=== PATIENT | female | born 1945 | race Caucasian/White ===

== ENCOUNTER → 2023-05-28 13:00 | Outpatient (REF) | payer MEDICARE, SELFPAY ==
[2023-05-28 13:38] LABS: % Basophils 1.3 % (0-2); % Eosinophils 3.3 % (0-6); % Immature Granulocytes 0.3 % (0-0.5); % Lymphocytes 33.9 % (20.5-51.1); % Monocytes 10.2 % (1.7-9.3); Absolute Basophils 0.1 10^3/uL (0-0.2); Absolute Eosinophils 0.2 10^3/uL (0-0.7); Absolute Monocytes 0.6 10^3/uL (0.1-0.6); Absolute Neutrophils 3.1 10^3/uL (1.4-6.5); Hematocrit 36.6 % (37.0-47.0); Hemoglobin 12.1 g/dL (12.0-16.0); Mean Corp Hgb Conc. 33.1 g/dL (33.0-37.0); Mean Corpuscular Hgb 28.7 pg (27.0-31.0); Mean Corpuscular Volume 86.7 fL (81.0-99.0); Mean Platelet Volume 11.6 fL (7.4-10.4); Nucleated Red Blood Cells % 0 %; Platelet Count 229 10^3/uL (130-400); Red Blood Cell Count 4.22 10^6/uL (4.20-5.40); Red Cell Dist. Width 14.6 % (11.5-14.5)
[2023-05-28 13:49] LABS: ALT (SGPT) 13 U/L (0-35); AST (SGOT) 23 U/L (14-36); Albumin 3.7 g/dl (3.5-5.0); Alkaline Phosphatase 89 U/L (38-126); Blood Urea Nitrogen 26 mg/dl (7-17); Calcium 9.3 mg/dl (8.4-10.2); Carbon Dioxide 29 mmol/L (22-30); Chloride 97 mmol/L (98-107); Glucose 167 mg/dl (70-99); HDL Cholesterol 42 mg/dl; LDL Cholesterol, Calculated 41 mg/dl; Potassium 5.3 mmol/L (3.5-5.1); Sodium 135 mmol/L (135-145); Total Bilirubin 0.5 mg/dl (0.2-1.3); Total Cholesterol 143 mg/dl (50-199); Total Protein 6.4 g/dl (6.3-8.2); Triglyceride 302 mg/dl (10-149); Very Low Density Lipoprotein 60 mg/dl (0-30); eGFR > 60.00
[2023-05-28 14:19] LABS: Glycohemoglobin (HgbA1c) 8.1 % (4.0-5.6); TSH 2.85 uIU/ml (0.47-4.68)
== END ==
LOC: OLABPV 13:00
PROVIDERS: ATTENDING PHYSICIAN Physician Assistant; REFERRING PHYSICIAN Internal Medicine Cardiovascular Disease
DX: E04.1 Nontoxic single thyroid nodule (principal); I25.10 Atherosclerotic heart disease of native coronary artery without angina pectoris; R06.02 Shortness of breath; E11.9 Type 2 diabetes mellitus without complications; I42.9 Cardiomyopathy, unspecified; E66.9 Obesity, unspecified; Z95.5 Presence of coronary angioplasty implant and graft
CPT/HCPCS: 36415; 80053; 80061; 83036; 84443; 85025

== ENCOUNTER 2023-05-31 09:01 | Outpatient (RCR) | payer MEDICARE, SELFPAY ==
[2023-05-31] VITALS (7 sets, daily range): BP systolic 119–128; BP diastolic 56–63
[2023-05-31] MEDS: CLARITIN 10 MG PO (09:36)
[2023-05-31] MEDS: TYLENOL 650 MG PO (09:36)
[2023-05-31] MEDS: DECADRON 4 MG IV (09:37)
[2023-05-31] MEDS: GAMMAGARD 200 IV ×2 (09:45→11:02)
== END 2023-06-01 09:59 | disposition home or self-care (01) ==
LOC: OID 09:01
PROVIDERS: ATTENDING PHYSICIAN Internal Medicine Critical Care Medicine; FAMILY PHYSICIAN Internal Medicine
DX: J45.40 Moderate persistent asthma, uncomplicated (principal); D80.1 Nonfamilial hypogammaglobulinemia; J98.4 Other disorders of lung; R94.2 Abnormal results of pulmonary function studies; J18.9 Pneumonia, unspecified organism; J41.1 Mucopurulent chronic bronchitis; J47.9 Bronchiectasis, uncomplicated
CPT/HCPCS: 96365; 96366; 96375; J1569

== ENCOUNTER 2023-07-12 08:57 | Outpatient (RCR) | payer MEDICARE, SELFPAY ==
[2023-07-12] VITALS (7 sets, daily range): BP systolic 99–142; BP diastolic 50–67
[2023-07-12] MEDS: TYLENOL 650 MG PO (09:21)
[2023-07-12] MEDS: CLARITIN 10 MG PO (09:22)
[2023-07-12] MEDS: DECADRON 0.400000000000000022 MG IV (09:23)
[2023-07-12] MEDS: GAMMAGARD 200 IV ×2 (09:25→10:44)
[2023-07-12 10:49] LABS: Glucose - Point of Care 89 mg/dl (70-99)
== END 2023-08-03 23:59 | disposition home or self-care (01) ==
LOC: OID 08:57
PROVIDERS: ATTENDING PHYSICIAN Internal Medicine Critical Care Medicine; FAMILY PHYSICIAN Internal Medicine
DX: J45.40 Moderate persistent asthma, uncomplicated (principal); D80.1 Nonfamilial hypogammaglobulinemia; J98.4 Other disorders of lung; R94.2 Abnormal results of pulmonary function studies; J18.9 Pneumonia, unspecified organism; J41.1 Mucopurulent chronic bronchitis; J47.9 Bronchiectasis, uncomplicated
CPT/HCPCS: 82962; 96365; 96366; 96375; J1569

== ENCOUNTER 2023-08-23 10:28 | Outpatient (RCR) | payer MEDICARE, SELFPAY ==
[2023-08-23] MEDS: CLARITIN 10 MG PO (11:21)
[2023-08-23] MEDS: TYLENOL 650 MG PO (11:21)
[2023-08-23] MEDS: DECADRON 1 MG IV (11:21)
[2023-08-23 11:25] VITALS: BP 107/48
[2023-08-23] MEDS: GAMMAGARD 200 IV ×2 (11:25→12:44)
[2023-08-23 11:55] VITALS: BP 100/46
[2023-08-23 12:25] VITALS: BP 105/48
[2023-08-23 12:55] VITALS: BP 117/52
[2023-08-23 13:25] VITALS: BP 118/62
[2023-08-23 13:41] VITALS: BP 118/58
== END 2023-08-23 15:47 | disposition home or self-care (01) ==
LOC: OID 10:28
PROVIDERS: ATTENDING PHYSICIAN Internal Medicine Critical Care Medicine; FAMILY PHYSICIAN Internal Medicine
DX: J45.40 Moderate persistent asthma, uncomplicated (principal); D80.1 Nonfamilial hypogammaglobulinemia; J98.4 Other disorders of lung; R94.2 Abnormal results of pulmonary function studies; J18.9 Pneumonia, unspecified organism; J41.1 Mucopurulent chronic bronchitis; J47.9 Bronchiectasis, uncomplicated
CPT/HCPCS: 96365; 96366; 96375; J1569

== ENCOUNTER → 2023-08-27 10:01 | Outpatient (REF) | payer MEDICARE, SELFPAY ==
[2023-08-27 10:38] LABS: % Basophils 0.9 % (0-2); % Immature Granulocytes 0.3 % (0-0.5); % Lymphocytes 25.9 % (20.5-51.1); % Neutrophils 57.9 % (42.2-75.2); Absolute Basophils 0.1 10^3/uL (0-0.2); Absolute Eosinophils 0.4 10^3/uL (0-0.7); Absolute Monocytes 0.8 10^3/uL (0.1-0.6); Absolute Neutrophils 4.4 10^3/uL (1.4-6.5); Hematocrit 35.4 % (37.0-47.0); Mean Corp Hgb Conc. 33.9 g/dL (33.0-37.0); Mean Corpuscular Hgb 28.5 pg (27.0-31.0); Mean Corpuscular Volume 84.1 fL (81.0-99.0); Mean Platelet Volume 11.7 fL (7.4-10.4); Nucleated Red Blood Cells % 0 %; Platelet Count 189 10^3/uL (130-400); Red Blood Cell Count 4.21 10^6/uL (4.20-5.40); Red Cell Dist. Width 14.5 % (11.5-14.5); White Blood Cell Count 7.6 10^3/uL (4.8-10.8)
[2023-08-27 11:02] LABS: ALT (SGPT) 15 U/L (0-35); AST (SGOT) 29 U/L (14-36); Albumin 3.9 g/dl (3.5-5.0); Alkaline Phosphatase 97 U/L (38-126); Blood Urea Nitrogen 34 mg/dl (7-17); Calcium 9.3 mg/dl (8.4-10.2); Carbon Dioxide 23 mmol/L (22-30); Chloride 102 mmol/L (98-107); Glucose 127 mg/dl (70-99); Potassium 4.7 mmol/L (3.5-5.1); Sodium 137 mmol/L (135-145); Total Bilirubin 0.4 mg/dl (0.2-1.3); Total Protein 6.7 g/dl (6.3-8.2); eGFR > 60.00
[2023-08-27 11:32] LABS: TSH 2.74 uIU/ml (0.47-4.68)
== END ==
LOC: OLABPV 10:01
PROVIDERS: ATTENDING PHYSICIAN Chiropractor; FAMILY PHYSICIAN Physician Assistant
DX: E11.65 Type 2 diabetes mellitus with hyperglycemia (principal); E04.1 Nontoxic single thyroid nodule
CPT/HCPCS: 36415; 80053; 83036; 84443; 85025

== ENCOUNTER → 2023-12-04 10:35 | Outpatient (REF) | payer MEDICARE, SELFPAY | LOC: RAD 10:35 | PROVIDERS: ATTENDING PHYSICIAN Internal Medicine Infectious Disease; FAMILY PHYSICIAN Internal Medicine; REFERRING PHYSICIAN Internal Medicine Critical Care Medicine | DX: A31.8 Other mycobacterial infections (principal) | CPT/HCPCS: 71250 ==

== ENCOUNTER → 2023-12-24 08:50 | Outpatient (REF) | payer MEDICARE, SELFPAY ==
[2023-12-24 10:12] LABS: % Basophils 0.8 % (0-2); % Eosinophils 2.2 % (0-6); % Immature Granulocytes 0.3 % (0-0.5); % Lymphocytes 20.4 % (20.5-51.1); % Monocytes 9.4 % (1.7-9.3); % Neutrophils 66.9 % (42.2-75.2); Absolute Basophils 0.1 10^3/uL (0-0.2); Absolute Eosinophils 0.2 10^3/uL (0-0.7); Absolute Lymphocytes 1.8 10^3/uL (1.2-3.4); Absolute Monocytes 0.9 10^3/uL (0.1-0.6); Hematocrit 36.5 % (37.0-47.0); Hemoglobin 12.3 g/dL (12.0-16.0); Mean Corp Hgb Conc. 33.7 g/dL (33.0-37.0); Mean Corpuscular Hgb 28.4 pg (27.0-31.0); Mean Corpuscular Volume 84.3 fL (81.0-99.0); Mean Platelet Volume 11.3 fL (7.4-10.4); Nucleated Red Blood Cells % 0 %; Platelet Count 244 10^3/uL (130-400); Red Blood Cell Count 4.33 10^6/uL (4.20-5.40); Red Cell Dist. Width 14.1 % (11.5-14.5)
[2023-12-24 10:38] LABS: Glycohemoglobin (HgbA1c) 7.4 % (4.0-5.6)
[2023-12-24 10:44] LABS: ALT (SGPT) 17 U/L (0-35); AST (SGOT) 27 U/L (14-36); Albumin 4.1 g/dl (3.5-5.0); Alkaline Phosphatase 108 U/L (38-126); Blood Urea Nitrogen 31 mg/dl (7-17); Calcium 9.3 mg/dl (8.4-10.2); Carbon Dioxide 20 mmol/L (22-30); Chloride 103 mmol/L (98-107); Glucose 144 mg/dl (70-99); Potassium 4.8 mmol/L (3.5-5.1); Sodium 141 mmol/L (135-145); Total Bilirubin 0.4 mg/dl (0.2-1.3); Total Protein 6.4 g/dl (6.3-8.2); eGFR > 60.00
== END ==
LOC: OLABPV 08:50
PROVIDERS: ATTENDING PHYSICIAN Physician Assistant
DX: E11.65 Type 2 diabetes mellitus with hyperglycemia (principal); E04.1 Nontoxic single thyroid nodule
CPT/HCPCS: 36415; 80053; 83036; 84443; 85025

== ENCOUNTER 2023-12-30 08:56 | Outpatient (RCR) | payer MEDICARE, SELFPAY ==
[2023-12-30 09:10] VITALS: BP 123/35
[2023-12-30] MEDS: SOLU-MEDROL PF 0.8 MG IV (09:34)
[2023-12-30] MEDS: TYLENOL 650 MG PO (09:34)
[2023-12-30] MEDS: CLARITIN 10 MG PO (09:34)
[2023-12-30] MEDS: GAMMAGARD 200 IV ×2 (09:35→10:55)
[2023-12-30 09:48] VITALS: BP 115/42
[2023-12-30 09:49] VITALS: BMI 43.2
[2023-12-30 10:18] VITALS: BP 123/56
[2023-12-30 10:48] VITALS: BP 123/56
[2023-12-30 11:18] VITALS: BP 106/35
[2023-12-30 11:48] VITALS: BP 111/55
== END 2024-01-03 23:59 | disposition home or self-care (01) ==
LOC: OID 08:56
PROVIDERS: ATTENDING PHYSICIAN Internal Medicine Critical Care Medicine; FAMILY PHYSICIAN Internal Medicine
DX: D80.1 Nonfamilial hypogammaglobulinemia (principal); J45.40 Moderate persistent asthma, uncomplicated; J98.4 Other disorders of lung; R94.2 Abnormal results of pulmonary function studies; J41.1 Mucopurulent chronic bronchitis; J47.9 Bronchiectasis, uncomplicated; I42.9 Cardiomyopathy, unspecified; R06.02 Shortness of breath; J18.9 Pneumonia, unspecified organism; I25.10 Atherosclerotic heart disease of native coronary artery without angina pectoris; E66.01 Morbid (severe) obesity due to excess calories; Z68.42 Body mass index [BMI] 45.0-49.9, adult; Z86.16 Personal history of COVID-19; I10 Essential (primary) hypertension
CPT/HCPCS: 96365; 96366; 96375; J1569

== ENCOUNTER 2024-02-10 08:58 | Outpatient (RCR) | payer MEDICARE, SELFPAY ==
[2024-02-10] VITALS (7 sets, daily range): BP systolic 115–135; BP diastolic 48–84; BMI 43.2
[2024-02-10] MEDS: SOLU-MEDROL PF 0.8 MG IV (09:45)
[2024-02-10] MEDS: CLARITIN 10 MG PO (09:45)
[2024-02-10] MEDS: TYLENOL 650 MG PO (09:45)
[2024-02-10] MEDS: GAMMAGARD 200 IV ×2 (09:49→11:04)
== END 2024-02-11 10:26 | disposition home or self-care (01) ==
LOC: OID 08:58
PROVIDERS: ATTENDING PHYSICIAN Internal Medicine Critical Care Medicine; FAMILY PHYSICIAN Internal Medicine
DX: D80.1 Nonfamilial hypogammaglobulinemia (principal); J45.40 Moderate persistent asthma, uncomplicated; J98.4 Other disorders of lung; R94.2 Abnormal results of pulmonary function studies; J18.9 Pneumonia, unspecified organism; J41.1 Mucopurulent chronic bronchitis; J47.9 Bronchiectasis, uncomplicated
CPT/HCPCS: 96365; 96366; 96375; J1569

== ENCOUNTER 2024-03-23 08:56 | Outpatient (RCR) | payer MEDICARE, SELFPAY ==
[2024-03-23 09:30] VITALS: BP 123/51
[2024-03-23] MEDS: TYLENOL 650 MG PO (09:53)
[2024-03-23] MEDS: SOLU-MEDROL PF 0.8 MG IV (09:54)
[2024-03-23] MEDS: CLARITIN 10 MG PO (09:54)
[2024-03-23] MEDS: GAMMAGARD 200 IV ×2 (09:55→11:14)
[2024-03-23 10:03] VITALS: BP 121/52
[2024-03-23 10:33] VITALS: BP 118/52
[2024-03-23 11:03] VITALS: BP 119/60
[2024-03-23 11:33] VITALS: BP 125/60
[2024-03-23 12:03] VITALS: BP 126/52
== END 2024-03-24 11:36 | disposition home or self-care (01) ==
LOC: OID 08:56
PROVIDERS: ATTENDING PHYSICIAN Internal Medicine Critical Care Medicine; FAMILY PHYSICIAN Internal Medicine
DX: D80.1 Nonfamilial hypogammaglobulinemia (principal); J45.40 Moderate persistent asthma, uncomplicated; J98.4 Other disorders of lung; R94.2 Abnormal results of pulmonary function studies; J18.9 Pneumonia, unspecified organism; J41.1 Mucopurulent chronic bronchitis; J47.9 Bronchiectasis, uncomplicated
CPT/HCPCS: 96365; 96366; 96375; J1569

== ENCOUNTER → 2024-04-21 10:44 | Outpatient (REF) | payer MEDICARE, SELFPAY ==
[2024-04-21 11:57] LABS: % Basophils 1.2 % (0-2); % Eosinophils 2.5 % (0-6); % Immature Granulocytes 0.3 % (0-0.5); % Lymphocytes 38.2 % (20.5-51.1); % Monocytes 10.4 % (1.7-9.3); % Neutrophils 47.4 % (42.2-75.2); Absolute Basophils 0.1 10^3/uL (0-0.2); Absolute Eosinophils 0.2 10^3/uL (0-0.7); Absolute Lymphocytes 2.5 10^3/uL (1.2-3.4); Absolute Monocytes 0.7 10^3/uL (0.1-0.6); Absolute Neutrophils 3.1 10^3/uL (1.4-6.5); Hematocrit 39.9 % (37.0-47.0); Hemoglobin 12.6 g/dL (12.0-16.0); Mean Corp Hgb Conc. 31.6 g/dL (33.0-37.0); Mean Corpuscular Hgb 28.3 pg (27.0-31.0); Mean Corpuscular Volume 89.7 fL (81.0-99.0); Mean Platelet Volume 11.5 fL (7.4-10.4); Nucleated Red Blood Cells % 0 %; Platelet Count 223 10^3/uL (130-400); Red Blood Cell Count 4.45 10^6/uL (4.20-5.40); Red Cell Dist. Width 14.5 % (11.5-14.5); White Blood Cell Count 6.5 10^3/uL (4.8-10.8)
[2024-04-21 11:59] LABS: ALT (SGPT) 16 U/L (0-35); AST (SGOT) 27 U/L (14-36); Albumin 4.2 g/dl (3.5-5.0); Alkaline Phosphatase 80 U/L (38-126); Blood Urea Nitrogen 35 mg/dl (7-17); Calcium 9.3 mg/dl (8.4-10.2); Carbon Dioxide 28 mmol/L (22-30); Chloride 101 mmol/L (98-107); Glucose 134 mg/dl (70-99); HDL Cholesterol 39 mg/dl; LDL Cholesterol, Calculated 87 mg/dl; Potassium 5.3 mmol/L (3.5-5.1); Sodium 138 mmol/L (135-145); Total Bilirubin 0.3 mg/dl (0.2-1.3); Total Cholesterol 181 mg/dl (50-199); Total Protein 6.7 g/dl (6.3-8.2); Triglyceride 279 mg/dl (10-149); Very Low Density Lipoprotein 55 mg/dl (0-30); eGFR > 60.00
[2024-04-21 12:38] LABS: Microalbumin, Random Urine <0.6 mg/dl (0.6-1.7)
[2024-04-21 12:39] LABS: Urine Protein < 5.0 mg/dl
[2024-04-21 14:31] LABS: Glycohemoglobin (HgbA1c) 8.2 % (4.0-5.6)
== END ==
LOC: OLABPV 10:44
PROVIDERS: ATTENDING PHYSICIAN Physician Assistant
DX: E11.65 Type 2 diabetes mellitus with hyperglycemia (principal)
CPT/HCPCS: 36415; 80053; 80061; 82043; 82570; 83036; 84156; 85025

== ENCOUNTER → 2024-04-25 14:49 | Outpatient (REF) | payer MEDICARE, SELFPAY | LOC: WDC 14:49 | PROVIDERS: ATTENDING PHYSICIAN Internal Medicine | DX: Z12.31 Encounter for screening mammogram for malignant neoplasm of breast (principal) | CPT/HCPCS: 77063; 77067 ==

== ENCOUNTER 2024-05-04 08:59 | Outpatient (RCR) | payer MEDICARE, SELFPAY ==
[2024-05-04] VITALS (7 sets, daily range): BP systolic 121–139; BP diastolic 52–67
[2024-05-04] MEDS: SOLU-MEDROL PF 0.8 MG IV (09:19)
[2024-05-04] MEDS: CLARITIN 10 MG PO (09:19)
[2024-05-04] MEDS: GAMMAGARD 200 IV ×2 (09:20→10:35)
[2024-05-04] MEDS: TYLENOL 650 MG PO (09:20)
== END 2024-05-05 08:27 | disposition home or self-care (01) ==
LOC: OID 08:59
PROVIDERS: ATTENDING PHYSICIAN Internal Medicine Critical Care Medicine; FAMILY PHYSICIAN Internal Medicine
DX: D80.1 Nonfamilial hypogammaglobulinemia (principal); J45.40 Moderate persistent asthma, uncomplicated; J98.4 Other disorders of lung; R94.2 Abnormal results of pulmonary function studies; J18.9 Pneumonia, unspecified organism; J41.1 Mucopurulent chronic bronchitis; J47.9 Bronchiectasis, uncomplicated
CPT/HCPCS: 96365; 96366; 96374; 96375; J1569

== ENCOUNTER → 2024-06-09 14:10 | Outpatient (REF) | payer MEDICARE, SELFPAY | LOC: HWRAD 14:10 | PROVIDERS: ATTENDING PHYSICIAN Nurse Practitioner Adult Health; FAMILY PHYSICIAN Internal Medicine | DX: M54.16 Radiculopathy, lumbar region (principal); R09.89 Other specified symptoms and signs involving the circulatory and respiratory systems | CPT/HCPCS: 71046; 72110 ==

== ENCOUNTER 2024-06-22 08:58 | Outpatient (RCR) | payer MEDICARE, SELFPAY ==
[2024-06-22] VITALS (7 sets, daily range): BP systolic 93–119; BP diastolic 45–53
[2024-06-22] MEDS: TYLENOL 650 MG PO (09:24)
[2024-06-22] MEDS: SOLU-MEDROL PF 0.8 MG IV (09:25)
[2024-06-22] MEDS: GAMMAGARD 200 IV ×2 (09:25→10:42)
[2024-06-22] MEDS: CLARITIN 10 MG PO (09:25)
== END 2024-06-23 09:02 | disposition home or self-care (01) ==
LOC: OID 08:58
PROVIDERS: ATTENDING PHYSICIAN Internal Medicine Critical Care Medicine; FAMILY PHYSICIAN Internal Medicine
DX: D80.1 Nonfamilial hypogammaglobulinemia (principal); J45.40 Moderate persistent asthma, uncomplicated; J98.4 Other disorders of lung; R94.2 Abnormal results of pulmonary function studies; J18.9 Pneumonia, unspecified organism; J41.1 Mucopurulent chronic bronchitis; J47.9 Bronchiectasis, uncomplicated
CPT/HCPCS: 96365; 96366; 96375; J1569

== ENCOUNTER → 2024-07-19 09:11 | Outpatient (REF) | payer MEDICARE, SELFPAY ==
[2024-07-19 10:50] LABS: % Basophils 0.7 % (0-2); % Eosinophils 2.2 % (0-6); % Immature Granulocytes 0.5 % (0-0.5); % Monocytes 7.8 % (1.7-9.3); % Neutrophils 56.8 % (42.2-75.2); Absolute Basophils 0.1 10^3/uL (0-0.2); Absolute Eosinophils 0.3 10^3/uL (0-0.7); Absolute Immature Granulocytes 0.1 10^3/uL (0-0.05); Absolute Lymphocytes 3.8 10^3/uL (1.2-3.4); Absolute Monocytes 0.9 10^3/uL (0.1-0.6); Absolute Neutrophils 6.7 10^3/uL (1.4-6.5); Hematocrit 37.9 % (37.0-47.0); Hemoglobin 12.6 g/dL (12.0-16.0); Mean Corp Hgb Conc. 33.2 g/dL (33.0-37.0); Mean Corpuscular Hgb 28.9 pg (27.0-31.0); Mean Corpuscular Volume 86.9 fL (81.0-99.0); Mean Platelet Volume 11.5 fL (7.4-10.4); Nucleated Red Blood Cells % 0 %; Platelet Count 235 10^3/uL (130-400); Red Blood Cell Count 4.36 10^6/uL (4.20-5.40); Red Cell Dist. Width 15.1 % (11.5-14.5); White Blood Cell Count 11.7 10^3/uL (4.8-10.8)
[2024-07-19 11:41] LABS: ALT (SGPT) 17 U/L (0-35); AST (SGOT) 24 U/L (14-36); Albumin 3.9 g/dl (3.5-5.0); Alkaline Phosphatase 76 U/L (38-126); Blood Urea Nitrogen 33 mg/dl (7-17); Calcium 9.4 mg/dl (8.4-10.2); Carbon Dioxide 27 mmol/L (22-30); Chloride 101 mmol/L (98-107); Glucose 118 mg/dl (70-99); HDL Cholesterol 46 mg/dl; LDL Cholesterol, Calculated 82 mg/dl; Sodium 138 mmol/L (135-145); Total Bilirubin 0.6 mg/dl (0.2-1.3); Total Cholesterol 173 mg/dl (50-199); Total Protein 6.4 g/dl (6.3-8.2); Triglyceride 226 mg/dl (10-149); Very Low Density Lipoprotein 45 mg/dl (0-30); eGFR > 60.00
[2024-07-19 12:29] LABS: Glycohemoglobin (HgbA1c) 8.4 % (4.0-5.6)
[2024-07-19 16:47] LABS: TSH 2.99 uIU/ml (0.47-4.68)
== END ==
LOC: OLABPV 09:11
PROVIDERS: ATTENDING PHYSICIAN Physician Assistant; FAMILY PHYSICIAN Internal Medicine
DX: E04.1 Nontoxic single thyroid nodule (principal); E11.65 Type 2 diabetes mellitus with hyperglycemia
CPT/HCPCS: 36415; 76536; 80053; 80061; 83036; 84443; 85025

== ENCOUNTER → 2024-07-20 13:35 | Outpatient (REF) | payer MEDICARE, SELFPAY | LOC: RCS 13:35 | PROVIDERS: ATTENDING PHYSICIAN Nurse Practitioner; FAMILY PHYSICIAN Internal Medicine | DX: R06.09 Other forms of dyspnea (principal) | CPT/HCPCS: 93306 ==

== ENCOUNTER → 2024-07-21 07:14 | Outpatient (REF) | payer MEDICARE, SELFPAY | LOC: HWRCS 07:14 | PROVIDERS: ATTENDING PHYSICIAN Nurse Practitioner; FAMILY PHYSICIAN Internal Medicine | DX: R06.09 Other forms of dyspnea (principal) | CPT/HCPCS: 78452; 93017; A9500; J2785 ==

== ENCOUNTER → 2024-07-26 12:47 | Outpatient (REF) | payer MEDICARE, SELFPAY | LOC: SDSPAT 12:47 | PROVIDERS: ATTENDING PHYSICIAN Student in an Organized Health Care Education/Training Program; FAMILY PHYSICIAN Internal Medicine; OTHER PHYSICIAN Internal Medicine Cardiovascular Disease | DX: R06.02 Shortness of breath (principal); I25.10 Atherosclerotic heart disease of native coronary artery without angina pectoris | CPT/HCPCS: 93005 ==

== ENCOUNTER 2024-07-28 08:51 | Day surgery (SDC) | payer MEDICARE, SELFPAY ==
[2024-07-26 13:22] VITALS: BMI 42.1
[2024-07-28] VITALS (14 sets, daily range): BP systolic 81–128; BP diastolic 37–80; BMI 41.9
[2024-07-28 09:33] LABS: Glucose - Point of Care 188 mg/dl (70-99)
[2024-07-28] MEDS: LOW STRENGTH ASPIRIN 81 MG PO (09:44)
[2024-07-28] MEDS: NSS 312 ML IV (09:45)
--- NOTE | 2024-07-28 15:03 | ITS.CL.PN ---
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
Procedure
Procedure Note:
CARDIAC CATHETERIZATION REPORT
Date of Procedure: 07/28/2024
Referring: Dr. Steve Hicks MD
Indication: shortness of breath
PROCEDURE(S)
1. right heart catheterization
2. coronary angiography
ACCESS
1. 6F right common femoral artery (note: both radial arteries small and apparently occluded with positive Raffaele's test of both ulnar arteries prompting decision to use femoral access; closure: Angioseal x1)
2. 6F right femoral vein (closure: manual hemostasis)
CATHETERS
1. 6F [place]
2. 6F JR4
3. 6F JL4
MODERATE SEDATION: 45 minutes of moderate sedation was utilized. An independent bilingual medical assistant was present to assist with and help manage the patient's level of consciousness and physiologic status.
HEMODYNAMIC DATA
AO 106/59 (mean 79) mmHg
RA 13 mmHg
RV 41/4 (EDP 13) mmHg
PA 42/24 (mean 30) mmHg
PCWP 18 mmHg
SaO2 94 point %
SvO2 60.9%
Hb 12.7 g/dL
CO/CI 4.33/2.14 L/min/m2
SVR 1220 dsc*-5
PVR 2.8 Wood units
CORONARY ANGIOGRAPHY
Dominance: Right
LM: Large with minimal disease
LAD: Small, negatively remodeled vessel giving rise to one predominant diagonal branch. There is a stent in the LAD jailing the diagonal with diffuse moderate ISR. There are no focal lesions and no targets for percutaneous revascularization.
LCx: moderate caliber vessel giving rise to a small OM1, moderate caliber branching OM2, and small OM3. There is diffuse mild-moderate disease.
RCA: Large vessel giving rise to medium caliber RPDA and 2 RPL branches. The vessel has a high anterior takeoff with downward trajectory. There is moderate ostial stenosis that appears angiographically similar if not improved compared to 2010
angiography. There is a new 50% stenosis in the distal right before the RPDA. There is otherwise mild diffuse disease.
RADIATION: dose 1029.55 mGy; DAP 84.606 Gy*cm2; fluoroscopy time 8.5 min
CONCLUSIONS & RECOMMENDATIONS
1. Diffuse non-critical coronary artery disease in a right dominant system. There is no obvious culprit lesion to explain her dyspnea symptoms which are likely multi-factorial and not related to coronary artery disease.
2. Her coronary disease is quite diffuse, likely a result of her long standing diabetes. She will benefit from aggressive secondary prevention and risk factor modification.
Copy to: Dr. Steve Hicks MD (interventional physiatrist); Dr. Soraida Griffin MD (PCP)
Signed: Saul Johnson MD, PhD
== END 2024-07-28 17:45 | disposition home or self-care (01) ==
LOC: CATH 08:51
PROVIDERS: ATTENDING PHYSICIAN Student in an Organized Health Care Education/Training Program; FAMILY PHYSICIAN Internal Medicine
DX: I25.10 Atherosclerotic heart disease of native coronary artery without angina pectoris (principal); R06.09 Other forms of dyspnea; I10 Essential (primary) hypertension; E78.5 Hyperlipidemia, unspecified; J40 Bronchitis, not specified as acute or chronic; E11.9 Type 2 diabetes mellitus without complications; G47.33 Obstructive sleep apnea (adult) (pediatric); E66.01 Morbid (severe) obesity due to excess calories; Z68.41 Body mass index [BMI] 40.0-44.9, adult; Z79.4 Long term (current) use of insulin; Z79.82 Long term (current) use of aspirin; Z79.84 Long term (current) use of oral hypoglycemic drugs; Z79.85 Long-term (current) use of injectable non-insulin antidiabetic drugs
CPT/HCPCS: 99152; 99153; C1894; 82962; 93456; C1760; Q9967

== ENCOUNTER 2024-08-11 09:04 | Outpatient (RCR) | payer MEDICARE, SELFPAY ==
[2024-08-11] VITALS (7 sets, daily range): BP systolic 104–141; BP diastolic 47–75
[2024-08-11] MEDS: TYLENOL 650 MG PO (09:49)
[2024-08-11] MEDS: CLARITIN 10 MG PO (09:49)
[2024-08-11] MEDS: SOLU-MEDROL PF 0.8 MG IV (09:49)
[2024-08-11] MEDS: GAMMAGARD 200 IV ×2 (09:54→11:10)
[2024-08-11 10:33] LABS: Albumin 3.5 g/dl (3.5-5.0); Blood Urea Nitrogen 31 mg/dl (7-17); Calcium 9.2 mg/dl (8.4-10.2); Carbon Dioxide 24 mmol/L (22-30); Chloride 104 mmol/L (98-107); Glucose 261 mg/dl (70-99); Phosphorus 3.9 mg/dl (2.5-4.5); Potassium 4.5 mmol/L (3.5-5.1); Sodium 139 mmol/L (135-145); eGFR > 60.00
[2024-08-11 10:40] LABS: NT-proBNP 310 pg/ml
== END 2024-08-14 08:38 | disposition home or self-care (01) ==
LOC: OID 09:04
PROVIDERS: Internal Medicine Cardiovascular Disease; ATTENDING PHYSICIAN Internal Medicine Critical Care Medicine; FAMILY PHYSICIAN Internal Medicine
DX: D80.8 Other immunodeficiencies with predominantly antibody defects (principal); J45.40 Moderate persistent asthma, uncomplicated; J98.4 Other disorders of lung; R94.2 Abnormal results of pulmonary function studies; J18.9 Pneumonia, unspecified organism; J41.1 Mucopurulent chronic bronchitis; J47.9 Bronchiectasis, uncomplicated
CPT/HCPCS: 36415; 80069; 83880; 96365; 96366; 96375; J1569

== ENCOUNTER → 2024-08-18 12:05 | Outpatient (REF) | payer MEDICARE, SELFPAY ==
[2024-08-18 12:43] LABS: Albumin 3.9 g/dl (3.5-5.0); Blood Urea Nitrogen 33 mg/dl (7-17); Calcium 8.7 mg/dl (8.4-10.2); Carbon Dioxide 25 mmol/L (22-30); Chloride 105 mmol/L (98-107); Glucose 151 mg/dl (70-99); Phosphorus 3.8 mg/dl (2.5-4.5); Potassium 4.3 mmol/L (3.5-5.1); Sodium 139 mmol/L (135-145); eGFR 57.66
== END ==
LOC: OLABPV 12:05
PROVIDERS: ATTENDING PHYSICIAN Internal Medicine Cardiovascular Disease
DX: R06.09 Other forms of dyspnea (principal)
CPT/HCPCS: 36415; 80069

== ENCOUNTER 2024-09-22 08:59 | Outpatient (RCR) | payer MEDICARE, SELFPAY ==
[2024-09-22] VITALS (7 sets, daily range): BP systolic 103–140; BP diastolic 46–64
[2024-09-22] MEDS: CLARITIN 10 MG PO (09:44)
[2024-09-22] MEDS: GAMMAGARD 200 IV ×2 (09:44→11:03)
[2024-09-22] MEDS: SOLU-MEDROL PF 0.8 MG IV (09:44)
[2024-09-22] MEDS: TYLENOL 650 MG PO (09:44)
[2024-09-25 01:28] LABS: IgA 119 mg/dl (70-400); IgG 751 mg/dl (700-1600); IgM 67 mg/dl (40-230)
== END 2024-09-25 08:50 | disposition home or self-care (01) ==
LOC: OID 08:59
PROVIDERS: ATTENDING PHYSICIAN Internal Medicine Critical Care Medicine; FAMILY PHYSICIAN Internal Medicine
DX: J45.40 Moderate persistent asthma, uncomplicated (principal); J98.4 Other disorders of lung; R94.2 Abnormal results of pulmonary function studies; J18.9 Pneumonia, unspecified organism; J41.1 Mucopurulent chronic bronchitis; J47.9 Bronchiectasis, uncomplicated
CPT/HCPCS: 36415; 82784; 96365; 96366; 96374; 96375; J1569

== ENCOUNTER → 2024-10-20 10:01 | Outpatient (REF) | payer MEDICARE, SELFPAY ==
[2024-10-20 10:36] LABS: Hematocrit 37.4 % (37.0-47.0); Hemoglobin 12.1 g/dL (12.0-16.0); Mean Corp Hgb Conc. 32.4 g/dL (33.0-37.0); Mean Corpuscular Volume 87.2 fL (81.0-99.0); Nucleated Red Blood Cells % 0 %; Platelet Count 280 10^3/uL (130-400); Red Cell Dist. Width 14.6 % (11.5-14.5)
[2024-10-20 10:46] LABS: ALT (SGPT) 16 U/L (0-35); AST (SGOT) 24 U/L (14-36); Albumin 4.2 g/dl (3.5-5.0); Alkaline Phosphatase 79 U/L (38-126); Blood Urea Nitrogen 30 mg/dl (7-17); Calcium 9.6 mg/dl (8.4-10.2); Carbon Dioxide 30 mmol/L (22-30); Chloride 104 mmol/L (98-107); Glucose 121 mg/dl (70-99); HDL Cholesterol 38 mg/dl; LDL Cholesterol, Calculated 99 mg/dl; Potassium 5.4 mmol/L (3.5-5.1); Sodium 137 mmol/L (135-145); Total Protein 6.8 g/dl (6.3-8.2); Very Low Density Lipoprotein 59 mg/dl (0-30); eGFR 57.66
[2024-10-20 11:16] LABS: TSH 5.27 uIU/ml (0.47-4.68)
[2024-10-20 12:10] LABS: Glycohemoglobin (HgbA1c) 8.0 % (4.0-5.6)
== END ==
LOC: OLABPV 10:01
PROVIDERS: ATTENDING PHYSICIAN Physician Assistant
DX: E11.65 Type 2 diabetes mellitus with hyperglycemia (principal)
CPT/HCPCS: 36415; 80053; 80061; 83036; 84443; 85025

== ENCOUNTER 2024-11-03 09:49 | Outpatient (RCR) | payer MEDICARE, SELFPAY ==
[2024-11-03] MEDS: CLARITIN 10 MG PO (10:43)
[2024-11-03] MEDS: TYLENOL 650 MG PO (10:44)
[2024-11-03] MEDS: SOLU-MEDROL PF 0.8 MG IV (10:45)
[2024-11-03] MEDS: GAMMAGARD 200 IV ×2 (10:49→12:07)
[2024-11-03 10:55] VITALS: BP 129/65
[2024-11-03 11:30] VITALS: BP 124/60
[2024-11-03 12:00] VITALS: BP 126/64
[2024-11-03 12:30] VITALS: BP 137/72
[2024-11-03 13:00] VITALS: BP 123/71
== END 2024-12-03 23:59 | disposition home or self-care (01) ==
LOC: OID 09:49
PROVIDERS: ATTENDING PHYSICIAN Internal Medicine Critical Care Medicine; FAMILY PHYSICIAN Internal Medicine
DX: D80.1 Nonfamilial hypogammaglobulinemia (principal); J45.40 Moderate persistent asthma, uncomplicated; J98.4 Other disorders of lung; R94.2 Abnormal results of pulmonary function studies; J18.9 Pneumonia, unspecified organism; J41.1 Mucopurulent chronic bronchitis; J47.9 Bronchiectasis, uncomplicated
CPT/HCPCS: 82784; 96365; 96366; J1569

== ENCOUNTER → 2024-11-10 10:07 | Outpatient (REF) | payer MEDICARE, SELFPAY | LOC: HWRAD 10:07 | PROVIDERS: ATTENDING PHYSICIAN Internal Medicine Infectious Disease; FAMILY PHYSICIAN Internal Medicine; REFERRING PHYSICIAN Internal Medicine Critical Care Medicine | DX: A31.8 Other mycobacterial infections (principal) | CPT/HCPCS: 71250 ==

== ENCOUNTER 2024-12-15 09:42 | Outpatient (RCR) | payer MEDICARE, SELFPAY ==
[2024-12-15 10:00] VITALS: BP 132/51
[2024-12-15] MEDS: CLARITIN 10 MG PO (10:21)
[2024-12-15] MEDS: SOLU-MEDROL PF 0.8 MG IV (10:21)
[2024-12-15] MEDS: TYLENOL 650 MG PO (10:21)
[2024-12-15] MEDS: GAMMAGARD 200 IV ×2 (10:22→11:37)
[2024-12-15 10:25] VITALS: BP 116/46
[2024-12-15 10:55] VITALS: BP 113/88
[2024-12-15 11:25] VITALS: BP 106/48
[2024-12-15 11:55] VITALS: BP 135/63
[2024-12-15 12:25] VITALS: BP 126/53
== END 2024-12-15 15:35 | disposition home or self-care (01) ==
LOC: OID 09:42
PROVIDERS: ATTENDING PHYSICIAN Internal Medicine Critical Care Medicine; FAMILY PHYSICIAN Internal Medicine
DX: D80.1 Nonfamilial hypogammaglobulinemia (principal); J45.40 Moderate persistent asthma, uncomplicated; J98.4 Other disorders of lung; R94.2 Abnormal results of pulmonary function studies; J18.9 Pneumonia, unspecified organism; J41.1 Mucopurulent chronic bronchitis; J47.9 Bronchiectasis, uncomplicated
CPT/HCPCS: 96365; 96366; 96375; J1569

== ENCOUNTER 2025-01-26 09:46 | Outpatient (RCR) | payer MEDICARE, SELFPAY ==
[2025-01-26 10:00] VITALS: BP 134/49
[2025-01-26] MEDS: TYLENOL 650 MG PO (10:13)
[2025-01-26] MEDS: CLARITIN 10 MG PO (10:13)
[2025-01-26] MEDS: SOLU-MEDROL PF 0.8 MG IV (10:13)
[2025-01-26] MEDS: GAMMAGARD 200 IV ×2 (10:14→11:32)
[2025-01-26 10:15] VITALS: BP 109/39
[2025-01-26 10:45] VITALS: BP 111/60
[2025-01-26 11:15] VITALS: BP 125/53
[2025-01-26 11:45] VITALS: BP 123/55
[2025-01-26 12:25] VITALS: BP 104/68
== END 2025-02-02 23:59 | disposition home or self-care (01) ==
LOC: OID 09:46
PROVIDERS: ATTENDING PHYSICIAN Internal Medicine Critical Care Medicine; FAMILY PHYSICIAN Internal Medicine
DX: D80.1 Nonfamilial hypogammaglobulinemia (principal); J45.40 Moderate persistent asthma, uncomplicated; J98.4 Other disorders of lung; R94.2 Abnormal results of pulmonary function studies; J18.9 Pneumonia, unspecified organism; J41.1 Mucopurulent chronic bronchitis; J47.9 Bronchiectasis, uncomplicated
CPT/HCPCS: 96365; 96366; 96374; 96375; J1569

== ENCOUNTER → 2025-02-27 10:59 | Outpatient (REF) | payer MEDICARE, SELFPAY ==
[2025-02-27 12:15] LABS: Hematocrit 38.0 % (37.0-47.0); Hemoglobin 12.2 g/dL (12.0-16.0); Mean Corp Hgb Conc. 32.1 g/dL (33.0-37.0); Mean Corpuscular Volume 89.8 fL (81.0-99.0); Nucleated Red Blood Cells % 0 %; Platelet Count 227 10^3/uL (130-400); Red Cell Dist. Width 14.6 % (11.5-14.5)
[2025-02-27 13:54] LABS: ALT (SGPT) 15 U/L (0-35); AST (SGOT) 24 U/L (14-36); Albumin 4.0 g/dl (3.5-5.0); Alkaline Phosphatase 78 U/L (38-126); Blood Urea Nitrogen 33 mg/dl (7-17); Calcium 9.0 mg/dl (8.4-10.2); Carbon Dioxide 27 mmol/L (22-30); Chloride 103 mmol/L (98-107); Glucose 137 mg/dl (70-99); HDL Cholesterol 39 mg/dl; LDL Cholesterol, Calculated 41 mg/dl; Potassium 5.1 mmol/L (3.5-5.1); Sodium 135 mmol/L (135-145); Total Protein 6.7 g/dl (6.3-8.2); Very Low Density Lipoprotein 34 mg/dl (0-30); eGFR 57.31
[2025-02-27 14:02] LABS: TSH 2.80 uIU/ml (0.47-4.68)
[2025-02-28 08:22] LABS: Glycohemoglobin (HgbA1c) 7.9 % (4.0-5.9)
[2025-02-28 16:13] LABS: Thyroglobulin Antibodies <1.5 IU/mL (0.0-4.0)
== END ==
LOC: OLABPV 10:59
PROVIDERS: ATTENDING PHYSICIAN Physician Assistant
DX: E03.9 Hypothyroidism, unspecified (principal); E11.65 Type 2 diabetes mellitus with hyperglycemia
CPT/HCPCS: 36415; 80053; 80061; 83036; 84439; 84443; 85025; 86376; 86800

== ENCOUNTER 2025-03-09 09:48 | Outpatient (RCR) | payer MEDICARE, SELFPAY ==
[2025-03-09] VITALS (7 sets, daily range): BP systolic 103–128; BP diastolic 0–90; BMI 42.9
[2025-03-09] MEDS: CLARITIN 10 MG PO (10:26)
[2025-03-09] MEDS: SOLU-MEDROL PF 0.8 MG IV (10:26)
[2025-03-09] MEDS: TYLENOL 650 MG PO (10:27)
[2025-03-09] MEDS: GAMMAGARD 200 IV (10:38)
== END 2025-03-12 10:54 | disposition home or self-care (01) ==
LOC: OID 09:48
PROVIDERS: ATTENDING PHYSICIAN Internal Medicine Critical Care Medicine; FAMILY PHYSICIAN Internal Medicine
DX: D80.1 Nonfamilial hypogammaglobulinemia (principal); J45.40 Moderate persistent asthma, uncomplicated; J98.4 Other disorders of lung; R94.2 Abnormal results of pulmonary function studies; J18.9 Pneumonia, unspecified organism; J41.1 Mucopurulent chronic bronchitis; J47.9 Bronchiectasis, uncomplicated
CPT/HCPCS: 96365; 96366; 96375; J1569

== ENCOUNTER → 2025-03-14 10:19 | Outpatient (REF) | payer MEDICARE, SELFPAY | LOC: HWRAD 10:19 | PROVIDERS: ATTENDING PHYSICIAN Internal Medicine Critical Care Medicine; FAMILY PHYSICIAN Internal Medicine; REFERRING PHYSICIAN Internal Medicine Infectious Disease | DX: R91.1 Solitary pulmonary nodule (principal); J47.9 Bronchiectasis, uncomplicated; R93.89 Abnormal findings on diagnostic imaging of other specified body structures | CPT/HCPCS: 71250 ==